=== PATIENT | female | born 1935 | race Caucasian/White ===

== ENCOUNTER 2018-02-21 12:28 | Observation (INO) | payer MEDICARE ==
[~2018-02-21] VITALS: Ht 149.9 cm; Wt 50.9 kg
[2018-02-21] VITALS (9 sets, daily range): BP systolic 136–158; BP diastolic 65–85; PULSE 67–103; RESP 16–20; TEMP 96.4–98.5; O2SAT 95–98
[~2018-02-21 12:28] MED LIST: MAXZ25 PO; OCUVTAB4 PO
[2018-02-21] MEDS ORDERED: ASPI-516 CHEW (13:08)
[2018-02-21] MEDS ORDERED: OCUVTAB4 PO (13:08)
--- NOTE | 2018-02-21 13:10 | PD ---
HPI Chief Complaint: palpitations Time Seen by Provider: 12:49 Travel History International Travel<30 days: No Contact w/Intl Traveler<30days: No Traveled to known affect area: No History of Present Illness HPI 82yo F presents to the ED with c/o palpitations today. Said she felt lightheaded and then laid down and had palpitations for about 15 minutes. Had some sob at the time. Said there was some discomfort in her chest when she had the palpitations. Denies any sob now. Denies any fever, n/v, abdominal pain, focal weakness or numbness. Pt's contract engineer is Dr. Schultz but he recently retired so she is going to find a new contract engineer. Said she has had palpitations before but did not last this long. Currently symptom free. PFSH Past Medical History Hx Anticoagulant Therapy: No Blood Disorders: No Anxiety: Yes Depression: No Cancer: No Cardiac Catheterization: Yes Cardiovascular Problems: No High Cholesterol: Yes Chemotherapy: No Cerebrovascular Accident: No Diabetes: No Diminished Hearing: No Endocrine: No Gastrointestinal Disorders: No Genitourinary: No Hypertension: Yes Immune Disorder: No Musculoskeletal: No Neurologic: No Psychiatric: No Reproductive: No Respiratory: No Immunizations Current: Yes : 2 Para: 2 Past Surgical History AICD: No Arteriovenous Shunt: No Eye Surgery: Yes (CATARACTS AND IMPLANTS) Hysterectomy: No Insulin Pump: No Joint Replacement: No Pacemaker: No Other Surgery: No Social History Alcohol Use: No Tobacco Use: Yes (/ PPD) Substance Use: No Allergies-Medications (Allergen,Severity, Reaction): Coded Allergies: amlodipine (Unverified Allergy, Severe, Nausea/Vomiting, 02/21/18) atorvastatin (Unverified Allergy, Severe, Nausea/Vomiting, 02/21/18) pravastatin (Unverified Allergy, Severe, Nausea/Vomiting, 02/21/18) simvastatin (Unverified Allergy, Severe, Nausea/Vomiting, 02/21/18) Reported Meds & Prescriptions Reported Meds & Active Scripts Active Reported Preservision Areds (Multiple Vitamins W/ Minerals) 1 Tab 1 Tab PO DAILY Aspirin 81 Mg Chew 81 Mg CHEW DAILY Review of Systems Except as stated in HPI: all other systems reviewed are Neg Physical Exam Narrative GENERAL: 82yo F not in distress. SKIN: Focused skin assessment warm/dry. HEAD: Atraumatic. Normocephalic. EYES: Pupils equal and round. No scleral icterus. No injection or drainage. ENT: No nasal bleeding or discharge. Mucous membranes pink and moist. NECK: Trachea midline. No JVD. CARDIOVASCULAR: Regular rate and rhythm. No murmur appreciated. RESPIRATORY: No accessory muscle use. Clear to auscultation. Breath sounds equal bilaterally. GASTROINTESTINAL: Abdomen soft, non-tender, nondistended. MUSCULOSKELETAL: No obvious deformities. No clubbing. No cyanosis. No edema. NEUROLOGICAL: Awake and alert. No obvious cranial nerve deficits. Motor grossly within normal limits. Normal speech. PSYCHIATRIC: Appropriate mood and affect; insight and judgment normal. Data Data Last Documented VS Vital Signs Date Time Temp Pulse Resp B/P (MAP) Pulse Ox O2 Delivery O2 Flow Rate FiO2 02/21/18 13:56 90 16 136/67 (90) 96 Room Air 02/21/18 12:35 98.0 Orders Orders Complete Blood Count With Diff (02/21/18 12:59) Basic Metabolic Panel (Bmp) (02/21/18 12:59) Troponin I (02/21/18 12:59) Magnesium (Mg) (02/21/18 12:59) Thyroid Stimulating Hormone (02/21/18 12:59) Chest, Single Ap (02/21/18 ) Prothrombin Time / Inr (Pt) (02/21/18 13:56) Act Partial Throm Time (Ptt) (02/21/18 13:56) Aspirin (Aspirin) (02/21/18 14:45) Admit Order (Ed Use Only) (02/21/18 14:41) Activity Bed Rest With Brp (02/21/18 14:41) Vital Signs (Adult) Q4H (02/21/18 14:41) Cardiac Rhythm .As Directed (02/21/18 14:41) Notify Dr: Other .PRN (02/21/18 14:41) Notify . Parameters (02/21/18 14:41) Resp Oxygen Nasal Cannula (02/21/18 ) Diet Heart Healthy (02/21/18 Dinner) Ckmb (Isoenzyme) Profile (02/21/18 16:15) Ckmb (Isoenzyme) Profile (02/21/18 19:15) Troponin I (02/21/18 16:15) Troponin I (02/21/18 19:15) Electrocardiogram (02/21/18 16:15) Electrocardiogram (02/21/18 19:15) ^ Obtain (02/21/18 14:41) Sodium Chloride 0.9% Flush (Ns Flush) (02/21/18 14:45) Sodium Chloride 0.9% Flush (Ns Flush) (02/21/18 21:00) Acetaminophen (Tylenol) (02/21/18 14:45) Apartment Groundskeeper / Telemetry CELIA.Q8H (02/21/18 14:41) Scd Bilateral/Knee High CELIA.BID (02/21/18 14:41) Labs Laboratory Tests Test 02/21/18 13:25 02/21/18 14:14 White Blood Count 7.9 TH/MM3 Red Blood Count 4.19 MIL/MM3 Hemoglobin 12.3 GM/DL Hematocrit 37.6 % Mean Corpuscular Volume 89.7 FL Mean Corpuscular Hemoglobin 29.5 PG Mean Corpuscular Hemoglobin Concent 32.8 % Red Cell Distribution Width 14.6 % Platelet Count 236 TH/MM3 Mean Platelet Volume 9.1 FL Neutrophils (%) (Auto) 71.5 % Lymphocytes (%) (Auto) 17.4 % Monocytes (%) (Auto) 9.1 % Eosinophils (%) (Auto) 1.0 % Basophils (%) (Auto) 1.0 % Neutrophils # (Auto) 5.6 TH/MM3 Lymphocytes # (Auto) 1.4 TH/MM3 Monocytes # (Auto) 0.7 TH/MM3 Eosinophils # (Auto) 0.1 TH/MM3 Basophils # (Auto) 0.1 TH/MM3 CBC Comment DIFF FINAL Differential Comment Blood Urea Nitrogen 19 MG/DL Creatinine 0.77 MG/DL Random Glucose 86 MG/DL Calcium Level 9.2 MG/DL Magnesium Level 1.9 MG/DL Sodium Level 138 MEQ/L Potassium Level 3.8 MEQ/L Chloride Level 105 MEQ/L Carbon Dioxide Level 24.3 MEQ/L Anion Gap 9 MEQ/L Estimat Glomerular Filtration Rate 72 ML/MIN Troponin I 0.09 NG/ML Thyroid Stimulating Hormone 3rd Gen 1.330 uIU/ML Prothrombin Time 10.8 SEC Prothromb Time International Ratio 1.1 RATIO Activated Partial Thromboplast Time 23.5 SEC MDM Medical Decision Making Medical Screen Exam Complete: Yes Emergency Medical Condition: Yes Interpretation(s) EKG: NSR 95bpm. Normal axis. No ST segment elevation or depression. Differential Diagnosis ACS vs. paroxysmal afib vs. arrhythmias Narrative Course 82yo F with palpitations, sob and mild chest discomfort during the palpations here for evaluation. Pt is currently asymptomatic. Labs reviewed, no leukocytosis. H/H normal. BUN mildly elevated, pt has no nausea and can orally hydrate. TSH normal. Troponin is mildly elevated at 0.09. CXR negative. Since pt has elevated troponin and discomfort in chest before, will observe and trend EKG and cardiac enzyme. Discussed with Dr. Cedeno and accepted to her service. Diagnosis Primary Impression: Elevated troponin Admitting Information Admitting Physician Requests: Observation Gina Bonilla DO Feb 21, 2018 13:10
[2018-02-21 13:35] LABS: AUTOMATED NEUTROPHIL # 5.6 TH/MM3 (1.8-7.7); BASOPHIL # 0.1 TH/MM3 (0-0.2); EOSINOPHIL # 0.1 TH/MM3 (0-0.4); HEMATOCRIT 37.6 % (35.0-46.0); HEMOGLOBIN 12.3 GM/DL (11.6-15.3); LYMPH % 17.4 % (9.0-44.0); LYMPHOCYTE # 1.4 TH/MM3 (1.0-4.8); MEAN CELL VOLUME 89.7 FL (80.0-100.0); MEAN CORPUSCULAR HEMOGLOBIN 29.5 PG (27.0-34.0); MEAN CORPUSCULAR HGB CONC 32.8 % (32.0-36.0); MEAN PLATELET VOLUME 9.1 FL (7.0-11.0); MONO % 9.1 % (0.0-8.0); MONOCYTE # 0.7 TH/MM3 (0-0.9); NEUT % 71.5 % (16.0-70.0); PLATELET COUNT 236 TH/MM3 (150-450); RED BLOOD COUNT 4.19 MIL/MM3 (4.00-5.30); RED CELL DISTRIBUTION WIDTH 14.6 % (11.6-17.2); WHITE BLOOD COUNT 7.9 TH/MM3 (4.0-11.0)
[2018-02-21 13:43] LABS: BICARBONATE 24.3 MEQ/L (21.0-32.0); CALCIUM 9.2 MG/DL (8.5-10.1); MAGNESIUM 1.9 MG/DL (1.5-2.5)
[2018-02-21 13:47] LABS: CREATININE 0.77 MG/DL (0.50-1.00)
[2018-02-21 13:52] LABS: TROPONIN I 0.09 NG/ML (0.02-0.05)
--- NOTE | 2018-02-21 14:18 | RADRPT ---
EXAM DATE: 02/21/2018 2:08 PM EDT AGE/SEX: 82 years / Female INDICATIONS: Short of breath and heart palpitations CLINICAL DATA: This is the patient's initial encounter. Patient reports that signs and symptoms have been present for 1 day and indicates a pain score of 3/10. MEDICAL/SURGICAL HISTORY: None. None. COMPARISON: No prior exams available for comparison. FINDINGS: The heart is normal in size. There are diffuse chronic interstitial changes and COPD. The bony struct ures demonstrate mild degenerative changes but are otherwise intact. CONCLUSION: COPD changes. No acute abnormality. Electronically signed by: Jose Quezada MD 02/21/2018 2:17 PM EDT
[2018-02-21 14:36] LABS: INTERNATIONAL NORMALIZED RATIO 1.1 RATIO; PROTHROMBIN TIME - PATIENT 10.8 SEC (9.8-11.6)
[2018-02-21] MEDS ORDERED: IOHEXOL 350 MG/ML 100 ML BTL (for Cath Lab) OTHER ONE (14:43)
[2018-02-21] MEDS ORDERED: ASPIRIN 325 MG TAB PO ONE (14:45)
[2018-02-21] MEDS ORDERED: SODIUM CHLORIDE 0.9% FLUSH 10 ML FLUSH IV FLUSH PRN (14:45)
[2018-02-21] MEDS ORDERED: ACETAMINOPHEN 500 MG CPLT PO PRN (14:45)
--- NOTE | 2018-02-21 16:13 | HHI.HP ---
[facility] Physician Ulysses Mckeon MD Admission Diagnosis Elevated troponin, palpitations Diagnoses: (1) Elevated troponin Chief Complaint: Palpitations Travel History International Travel<30 Days: No Contact w/Intl Traveler <30 Da: No Traveled to Known Affected Are: No History of Present Illness This is a pleasant 82-year-old female patient with a known medical history of hyperlipidemia, hypertension and history of vasovagal syncope who presented to the ED with complaints of palpitations. Supposedly around 1130 this morning she felt lightheaded, went to lay down and also complained of palpitations for approximately 15 minutes. She does admit to associated shortness of breath and felt like she was gasping for air. She called her daughter as well as 911. Patient does admit to vomiting 1 at home. She feels like something was pounding in her chest this morning, denies any actual chest pain. Denies any associated lightheadedness or dizziness. Patient states upon arrival to the ED all of her symptoms subsided. She denies any recent illness including fever, chills, cough, shortness of breath, headache, abdominal pain, nausea, diarrhea or dysuria. Does admit to a history of vasovagal syncope, states that she has been seeing a neurologist, Dr. Mott, as well as Dr. Schultz, cardiology for management of this disease. She last saw her roll forger one year ago. She does admit to history of palpitations in the past. Does state she underwent a cardiac catheterization back in 2006 and since then has not underwent a cardiac stress test. She states roughly 2 years ago she was hospitalized at [facility], and workup was done for her syncope including MRI, echocardiogram. 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 It should also be noted that she reports some carotid blockage but unaware of extent. Review of Systems Constitutional: COMPLAINS OF: Diaphoretic episodes, DENIES: Fatigue, Fever, Chills Eyes: DENIES: Diplopia Respiratory: COMPLAINS OF: Shortness of breath, DENIES: Cough, Wheezing, Sputum production Cardiovascular: COMPLAINS OF: Palpitations, DENIES: Chest pain, Lower Extremity Edema Gastrointestinal: COMPLAINS OF: Vomiting, DENIES: Abdominal pain, Black stools , Bloody stools, Constipation, Diarrhea, Nausea Musculoskeletal: DENIES: Joint pain Hematologic/lymphatic: DENIES: Bruising Neurologic: DENIES: Abnormal gait Psychiatric: COMPLAINS OF: Anxiety Except as stated in HPI: all other systems reviewed are Neg Past Family Social History Past Medical History History of vasovagal syncope Hyperlipidemia Anxiety Hypertension Macular degeneration History of reoccurring bladder cancer Past Surgical History Bilateral cataracts and lens implant in 2007 History of bladder cancer with history of 4 surgeries Right carpal tunnel repair Reported Medications Active Reported Preservision Areds (Multiple Vitamins W/ Minerals) 1 Tab 1 Tab PO DAILY Aspirin 81 Mg Chew 81 Mg CHEW DAILY Allergies: Coded Allergies: amlodipine (Unverified Allergy, Severe, Nausea/Vomiting, 02/21/18) atorvastatin (Unverified Allergy, Severe, Nausea/Vomiting, 02/21/18) pravastatin (Unverified Allergy, Severe, Nausea/Vomiting, 02/21/18) simvastatin (Unverified Allergy, Severe, Nausea/Vomiting, 02/21/18) Active Ordered Medications Current Medications Medications (Trade) Dose Ordered Sig/Melissa Route Start Time Stop Time Status Last Admin (NS Flush) 2 ml UNSCH PRN IV FLUSH 02/21/18 14:45 (NS Flush) 2 ml BID IV FLUSH 02/21/18 21:00 (Tylenol) 500 mg Q4H PRN PO 02/21/18 14:45 (Aspirin Chew) 81 mg DAILY CHEW 02/22/18 09:00 (Ocuvite) 1 tab DAILY PO 02/22/18 09:00 Family History Maternal medical history significant for hypertension and angina. Father had asthma. Social History Denies any current tobacco abuse. She states she quit 8 months ago prior to this she did smoke 1 pack per day for 65 years. Denies any alcohol or illicit drug use. Physical Exam Vital Signs Vital Signs Date Time Temp Pulse Resp B/P (MAP) Pulse Ox O2 Delivery O2 Flow Rate FiO2 02/21/18 15:44 02/21/18 13:56 90 16 136/67 (90) 96 Room Air 02/21/18 13:08 88 96 Room Air 02/21/18 12:35 98.0 103 16 136/85 (102) 98 Physical Exam GENERAL: Well-developed, well-nourished patient in NAD. SKIN: Warm and dry. No rash. HEAD: Normocephalic. Atraumatic. EYES: Pupils equal and round. No scleral icterus. No injection or drainage. ENT: No nasal bleeding or discharge. Mucous membranes pink and moist. NECK: Supple. Trachea midline. CARDIOVASCULAR: Regular rate and rhythm. S1, S2 noted. No murmur appreciated. No chest pain to palpation. RESPIRATORY: No accessory muscle use. Clear to auscultation. Breath sounds equal bilaterally. GASTROINTESTINAL: Abdomen soft, non-tender, nondistended. Normoactive bowel sounds x4. MUSCULOSKELETAL: No obvious deformities. Extremities without clubbing, cyanosis , or edema. NEUROLOGICAL: Awake and alert. No obvious cranial nerve deficits. Motor grossly within normal limits. 5/5 muscle strength in bilateral upper and lower extremities. Normal speech. PSYCHIATRIC: Appropriate mood and affect; insight and judgment normal. Laboratory Laboratory Tests Test 02/21/18 13:25 02/21/18 14:14 White Blood Count 7.9 Red Blood Count 4.19 Hemoglobin 12.3 Hematocrit 37.6 Mean Corpuscular Volume 89.7 Mean Corpuscular Hemoglobin 29.5 Mean Corpuscular Hemoglobin Concent 32.8 Red Cell Distribution Width 14.6 Platelet Count 236 Mean Platelet Volume 9.1 Neutrophils (%) (Auto) 71.5 Lymphocytes (%) (Auto) 17.4 Monocytes (%) (Auto) 9.1 Eosinophils (%) (Auto) 1.0 Basophils (%) (Auto) 1.0 Neutrophils # (Auto) 5.6 Lymphocytes # (Auto) 1.4 Monocytes # (Auto) 0.7 Eosinophils # (Auto) 0.1 Basophils # (Auto) 0.1 CBC Comment DIFF FINAL Differential Comment Blood Urea Nitrogen 19 Creatinine 0.77 Random Glucose 86 Calcium Level 9.2 Magnesium Level 1.9 Sodium Level 138 Potassium Level 3.8 Chloride Level 105 Carbon Dioxide Level 24.3 Anion Gap 9 Estimat Glomerular Filtration Rate 72 Troponin I 0.09 Thyroid Stimulating Hormone 3rd Gen 1.330 Prothrombin Time 10.8 Prothromb Time International Ratio 1.1 Activated Partial Thromboplast Time 23.5 Result Diagram: 02/21/18 1325 02/21/18 1325 Imaging Last Impressions Chest X-Ray 02/21/18 0000 Signed Impressions: CONCLUSION: COPD changes. No acute abnormality. Septic Shock Reassessment Septic shock perfusion: reassessment completed Caprini VTE Risk Assessment Caprini VTE Risk Assessment: Mod/High Risk (score >= 2) Caprini Risk Assessment Model Point Value = 1 Point Value = 2 Point Value = 3 Point Value = 5 Age 41-60 Minor surgery BMI > 25 kg/m2 Swollen legs Varicose veins or History of unexplained or recurrent spontaneous Oral contraceptives or hormone replacement Sepsis (< 1 month) Serious lung disease, including pneumonia (< 1 month) Abnormal pulmonary function Acute myocardial infarction Congestive heart failure (< 1 month) History of inflammatory bowel disease Medical patient at bed rest Age 61-74 Arthroscopic surgery Major open surgery (> 45 min) Laparoscopic surgery (> 45 min) Malignancy Confined to bed (> 72 hours) Immobilizing plaster cast Central venous access Age >= 75 History of VTE Family history of VTE Factor V Leiden Prothrombin [id number] Lupus anticoagulant Anticardiolipin antibodies Elevated serum homocysteine Heparin-induced thrombocytopenia Other congenital or acquired thrombophilia Stroke (< 1 month) Elective arthroplasty Hip, pelvis, or leg fracture Acute spinal cord injury (< 1 month) Prophylaxis Regimen Total Risk Factor Score Risk Level Prophylaxis Regimen 0-1 Low Early ambulation 2 Moderate Order ONE of the following: *Sequential Compression Device (SCD) *Heparin 5000 units SQ BID 3-4 Higher Order ONE of the following medications: *Heparin 5000 units SQ TID *Enoxaparin/Lovenox 40 mg SQ daily (WT < 150 kg, CrCl > 30 mL/min) *Enoxaparin/Lovenox 30 mg SQ daily (WT < 150 kg, CrCl > 10-29 mL/min) *Enoxaparin/Lovenox 30 mg SQ BID (WT < 150 kg, CrCl > 30 mL/min) AND/OR *Sequential Compression Device (SCD) 5 or more Highest Order ONE of the following medications: *Heparin 5000 units SQ TID (Preferred with Epidurals) *Enoxaparin/Lovenox 40 mg SQ daily (WT < 150 kg, CrCl > 30 mL/min) *Enoxaparin/Lovenox 30 mg SQ daily (WT < 150 kg, CrCl > 10-29 mL/min) *Enoxaparin/Lovenox 30 mg SQ BID (WT < 150 kg, CrCl > 30 mL/min) AND *Sequential Compression Device (SCD) Assessment and Plan Problem List: (1) Elevated troponin ICD Code: R74.8 - Abnormal levels of other serum enzymes Status: Acute Assessment and Plan This is a pleasant 82-year-old female patient with a known medical history of hyperlipidemia, hypertension and history of vasovagal syncope who presented to the ED with complaints of palpitations. Supposedly around 1130 this morning she felt lightheaded, went to lay down and also complained of palpitations for approximately 15 minutes. Elevated troponin rule out ACS - Initial troponin 0.09. Awaiting trend. Continue to follow. - EKG reviewed showing sinus rhythm with controlled heart rate, no ST changes to indicate ischemia. - All symptoms have resolved at this time. - Chest x-ray reviewed showing no acute abnormality. COPD changes seen. - Will continue on cardiac telemetry, monitor for any arrhythmias. - Patient was given aspirin in ED. Will continue. - Spoke to roll forger on-call, consulted, input and recommendations pending. - Will keep n.p.o. after midnight in anticipation for stress test versus need for cardiac catheterization. - Further hospitalization and treatment plan will depend on troponin trend and clinical improvement. - Patient stable at this time and agreeable to plan. Hypertension: This is diet controlled. Patient does not take anything at home. Will continue to monitor trends. DVT prophylaxis: SCDs. Jennifer Reza Feb 21, 2018 16:13
[2018-02-21 17:32] LABS: TROPONIN I 0.37 NG/ML (0.02-0.05)
[2018-02-21 18:16] LABS: HEMATOCRIT 37.5 % (35.0-46.0); HEMOGLOBIN 12.4 GM/DL (11.6-15.3); MEAN CELL VOLUME 89.2 FL (80.0-100.0); MEAN CORPUSCULAR HEMOGLOBIN 29.6 PG (27.0-34.0); MEAN CORPUSCULAR HGB CONC 33.2 % (32.0-36.0); MEAN PLATELET VOLUME 9.2 FL (7.0-11.0); PLATELET COUNT 259 TH/MM3 (150-450); RED BLOOD COUNT 4.21 MIL/MM3 (4.00-5.30); RED CELL DISTRIBUTION WIDTH 14.5 % (11.6-17.2); WHITE BLOOD COUNT 10.3 TH/MM3 (4.0-11.0)
[2018-02-21 18:30] LABS: INTERNATIONAL NORMALIZED RATIO 1.1 RATIO; PROTHROMBIN TIME - PATIENT 10.7 SEC (9.8-11.6)
[2018-02-21] MEDS ORDERED: HEPARIN-D5W 25,000 U/250 ML 250 ML IV SCH (19:00)
[2018-02-21 20:17] LABS: TROPONIN I 0.27 NG/ML (0.02-0.05)
[2018-02-21] MEDS: SODIUM CHLORIDE 0.9% FLUSH 10 ML FLUSH IV FLUSH SCH (21:00)
[2018-02-22] VITALS (21 sets, daily range): BP systolic 131–156; BP diastolic 67–75; PULSE 60–87; RESP 16–20; TEMP 97.8–98.5; O2SAT 90–98
[2018-02-22] MEDS: NITROGLYCERIN 2% OINT 1 GM PACKET TOPICAL SCH ×3 (06:30→17:22)
[2018-02-22] MEDS: MULTIVITAMIN-OPHTHALMIC 1 TAB PO SCH (07:25)
[2018-02-22] MEDS: METOPROLOL TARTRATE 25 MG TAB PO SCH ×3 (07:25→21:54)
[2018-02-22] MEDS: ASPIRIN 81 MG CHEW TAB CHEW SCH (07:25)
[2018-02-22] MEDS: SODIUM CHLORIDE 0.9% FLUSH 10 ML FLUSH IV FLUSH SCH ×2 (08:11→21:55)
[2018-02-22 09:58] LABS: AST (GOT) 19 U/L (15-37); BICARBONATE 24.8 MEQ/L (21.0-32.0); BLOOD UREA NITROGEN 20 MG/DL (7-18); CALCIUM 9.2 MG/DL (8.5-10.1); CHLORIDE 106 MEQ/L (98-107); CREATININE 0.82 MG/DL (0.50-1.00); GLOMERULAR FILTRATION RATE 67 ML/MIN (>89); GLUCOSE,RANDOM 86 MG/DL (74-106); SODIUM (NA) 140 MEQ/L (136-145)
[2018-02-22 09:59] LABS: ALBUMIN 3.6 GM/DL (3.4-5.0); ALT (GPT) 16 U/L (10-53); CHOLESTEROL 241 MG/DL (120-200)
[2018-02-22 10:02] LABS: ALKALINE PHOSPHATASE 88 U/L (45-117); HDL CHOLESTEROL 63.4 MG/DL (40.0-60.0); LDL CHOLESTEROL 161 MG/DL (0-99); TOTAL BILIRUBIN ADULT 0.4 MG/DL (0.2-1.0); TOTAL PROTEIN 7.6 GM/DL (6.4-8.2); TRIGLYCERIDES 82 MG/DL (42-150)
[2018-02-22] MEDS ORDERED: MIDAZOLAM HCL 2 MG/2 ML VIAL ONE (10:14)
[2018-02-22] MEDS ORDERED: HEPARIN-NS/PF INJ 1,000 ML ONE (10:14)
--- NOTE | 2018-02-22 10:24 | MB ---
cc: Miguel Ramirez MD DATE: 02/22/2018 REASON FOR CONSULTATION: Evaluation of chest discomfort and elevated troponin. HISTORY OF PRESENT ILLNESS: Pallavi Lema is an 82-year-old woman with known coronary artery disease. She had a previous cardiac catheterization performed on 02/11/2007 showing a 60% mid right coronary artery stenosis. The vessel was very small, so medical therapy was advised. She does not followup with her gas plant repairer regularly. She has had hypertension in the past been on no medicines for now. She has hyperlipidemia, but has had a complete intolerance to statins she said due to nausea, vomiting, and near syncope. She refuses to try taking them again. She was at home and she had an episode where she felt palpitations. She was short of breath and had a discomfort in her chest that she has a hard time describing. She says she has a history of vasovagal syncope. It has been awhile since she has seen a gas plant repairer. Subsequently ruled in for an DE with a small troponin bump. She has had previous evaluations for syncope at [facility], but none of those results are available. Apparently had a very small brain aneurysm and some mild carotid disease. PAST MEDICAL HISTORY: Includes vasovagal syncope, coronary artery disease, hyperlipidemia, anxiety, hypertension, macular degeneration, bladder cancer with multiple cystoscopies performed, no hematuria, however. PAST SURGICAL HISTORY: Includes, bilateral cataract surgery with lens implants, multiple cystoscopies for bladder cancer, right carpal tunnel repair. MEDICATIONS: The only medication she was taking prior to admission was vitamins and one aspirin. ALLERGIES: INCLUDE AMLODIPINE, ATORVASTATIN, PRAVASTATIN, SIMVASTATIN, AND SHE IS INTOLERANT TO MORPHINE WELL. FAMILY HISTORY: Positive for hypertension and angina. Father has asthma. SOCIAL HISTORY: She has a lifelong history of smoking. She has quit intermittently, but smoked right up until 8 months ago. REVIEW OF SYSTEMS: No bleeding. Remaining review of systems is also negative. PHYSICAL EXAMINATION: GENERAL: This is a short, thin elderly female in no acute distress. VITAL SIGNS: Charted. She has been normotensive. HEENT: Atraumatic, normocephalic. No xanthelasma. NECK: Shows no JVD. No bruits. Carotid upstrokes are okay. CHEST: Shows diminished breath sounds throughout, but no wheezes or rales. CARDIAC: S1, S2, regular rate and rhythm. No murmurs, rubs or gallops. ABDOMEN: Soft, nontender. No masses or organomegaly. EXTREMITIES: Reveal good radial pulses, but her wrists are somewhat thin. Femoral pulses are intact. Pedal pulses seem mildly diminished. LABORATORY WORKUP: Workup so far, CBC is unremarkable. Creatinine is normal. Her troponin went from 0.09-0.37 and then down to 0.27. Cholesterol is 241. Fractionation is pending. Her chest x-ray showed COPD. IMPRESSION: This is an 82-year-old woman with a lifelong history of smoking, known coronary artery disease with 60% disease of her right coronary artery 11 years ago now coming in with an acute non-ST segment elevation myocardial infarction. There is no specific EKG changes, but her troponin is clearly abnormal. PLAN: Perform diagnostic catheterization with possible intervention. Informed consent has been obtained including discussing the risks of , heart attack, stroke, etc. Further therapy to be determined. In the meantime, the patient is on aspirin, beta joann, nitrate therapy and heparin. Would like to introduce statin, but she refuses. Miguel Ramirez MD VEW/DL , 10:04 AM , 10:22 AM
--- NOTE | 2018-02-22 11:13 | CATHPROC ---
Studio HIS Report Study Information Study Number Admission Scheduled Start Study Start [id number] Feb 21 2018 2:42PM 02/22/2018 Feb 22 2018 8:20AM [place] [facility] Cardiac Catheterization Admit Source Facility Department Emergency department [facility] - [facility] [employer] Physician and Clinical Staff Initial Miguel Dobson Senior Accounts Payable Specialist Don Campbell,FADI Recorder Yane Cruz BSN Scrub Leonie VallejoRT(R) Procedures Performed Procedure Location (Site) Vessel Name Angiogram LV LV Ventricle Coronary Angiograms LCA Left Coronary Coronary Angiograms RCA Right Coronary L Heart Cath LV Gram-hand inj. LV Abd Aorta (A3) Aorta Equipment Time Distillery Worker General Description Size Mfg Part Number Used/Scraped TRANSDUCER, TRAllegiance Health FoundationAVE [id number] 10:10 MARTE JONES * Used W/STOCKCOCK *[id number] 10:58 Dayjet MEDICAL VASCADE, FR6 CLOSURE SYSTEM FR 6\\7 Used *[id number] *[id number] [id number] *[id number] PIGTAIL ANG. 145 INFINITI 534-652S CATHETER *[id number] [id number] *[id number] 10:10 Turing Data BLANKET,WARM AIR CCL * Used *[id number] 10:10 Turing Data PACK, CCL CUSTOM * Used *[id number] 10:10 Vital Sensors PACER PEN, SKIN DUAL W/ RULER * Used *[id number] 10:10 Human Demand SHEATH, FR6.5 PRELUDE 11CM FR 6.5 038ACT Used *[id number] 10:10 Human Demand WIRE, 3MMJ .035 180CM 180CM Used *[id number] 10:10 NAMIC MANIFOLD, 4 PORT * Used *[id number] TUBING, PRESSURE INJECTION [id number] 10:39 NAMIC 72" Used 72" *[id number] 10:10 NYCOMED OMNIPAQUE, 350 MG, 150ML 150ML [id number] Used History: Current Medications Medication Dosage/Unit Route Frequency Last Date/Time Taken Beta Earl 12.5 mg 02/22/2018 ASA 81 mg 02/22/2018 History: Allergies Allergy Reaction pravastatin Nausea/Vomiting simvastatin Nausea/Vomiting amlodipine Nausea/Vomiting atorvastatin Nausea/Vomiting History: Risk Factors Hypertension Dyslipidemia Yes Yes History: Stress Tests Stress or Imaging Studies Performed No History: Other Current Smoker Method Quit Packs a Day Years Used Pack Years No Cigarettes 1 Years Ago 1 67 67 Labs Hgb (g/dl) Hct (%) WBC (l/cumm) Platelets (thousands) 11.60-17.00 35.00-51.00 4.00-11.00 150.00-450.00 12.4 37.5 10.3 259 Glucose (mg/dl) BUN (mg/dl) Creatinine (mg/dl) BUN:Creatinine (1:x) 74.00-106.00 7.00-18.00 0.50-1.30 10.00-20.00 86 19 0.7 27.1 Na (meq/l) K (meq/l) 136.00-145.00 3.50-5.10 138 3.8 INR (PTT:PT) 0.90-1.10 1.1 Troponin I (ng/ml) CPK (u/l) CPK-MB (ng/ML) 0.02-0.05 26.00-308.00 0.50-3.60 0.27 45 Not Drawn Medication Medication Total Dose (Bolus/Oral) Medication Total Dosage/Unit 1% XYLOCAINE 20 mL VERSED 1 mg Medications (Bolus/Oral) Medication Time Given Dosage/Unit Administered By Reason VERSED 02/22/2018 10:34:04 AM 1 mg Don Campbell 1 mg VERSED given in lab by Don Campbell, RN via Peripheral IV. Ordered by Miguel Ramirez. 1% XYLOCAINE 02/22/2018 10:34:36 AM 20 mL Miguel Ramirez 20 mL 1% XYLOCAINE given in lab by Miguel Ramirez in Right Groin via Subcutaneous. Ordered by Miguel Ramirez. Medication (Drip) Medication Time Given Dosage/Unit Concentration/Unit Diluent (ml) Solutio n IV Solutions 02/22/2018 10:09:42 AM 50 mL (IV) NaCl .9 IV Solutions given in lab by Don Campbell, RN via Peripheral IV. Pump/Drip Flow using NaCl .9. Orde red by Miguel Ramirez. at [facility] Initial Case Assessment Cardiovascular HR Rhythm NIBP Chest Pain 70 sr 173/75 0 Edema Present Skin color Skin None Normal Warm Dry Circulatory - Right Pulses Posterior Tibial Femoral 2 2 Scale (0,1,2,3,4,d) Circulatory - Left Pulses Posterior Tibial Femoral 1 Scale (0,1,2,3,4,d) Circulatory - Lower Extremities Color Lower Right Color Lower Left Normal Normal Neurological State Oriented to time-place- Alert Moves all extremities person Respiration - General Respiration Rate SpO2 (%) O2 (lpm) (B/min) 13 98 0 Final Case Assessment Cardiovascular HR Rhythm Chest Pain 59 sr 0 Edema Present Skin color Skin None Normal Warm Dry Circulatory - Right Pulses Posterior Tibial Femoral 2 2 Scale (0,1,2,3,4,d) Circulatory - Left Pulses Posterior Tibial Femoral 1 Scale (0,1,2,3,4,d) Circulatory - Lower Extremities Color Lower Right Color Lower Left Normal Normal Neurological State Oriented to time-place- Alert Moves all extremities person Respiration - General Respiration Rate SpO2 (%) (B/min) 21 99 Chronological Log Time Study Chronological Log 10:06:56 Patient arrived via Bed. 10:09:00 Patient Name, D.O.B, / Armband Verified By R.N. 10:09:01 Consent signed by the physician and the patient and verified by the [facility] [employer] [facility] staff. 10:09:02 Pre-op and post- op instructions given; patient acknowledges understanding of instructions . 10:09:08 Patient has been NPO for More than 6Hrs. 10:09:09 Skin Breakdown- none per patient 10:09:17 Patient Warmer Placed on the Table. 10:09:19 Jesenia Prominences Protected 10:09:23 History and physical on the chart or being dictated. 10:09:25 A # 20 IV was noted in the Forearm (right). Grade = 0 IV Solutions given in lab by Don Campbell, FADI via Peripheral IV. Pump/Drip Flow using NaCl . 9. Ordered by James, 10:09:42 Miguel. at [facility] Vitals capture started with the following parameters, Patient=Adult, Interval=5 min, Initial P aqhxsvh=881 mmHg, 10:10:21 Deflation Rate=5 mmHg, Cuff placed on Left Arm 10:11:40 HR=66 bpm, BRCI=587/74 mmhg, SpO2=98.0 %, Resp=15 B/min, Pain=0, Jeffry=10, Hart=2 10:16:06 HR=64 bpm, AOJA=919/75 mmhg, SpO2=94.0 %, Resp=19 B/min, Pain=0, Jeffry=10, Hart=2 Assessment: Initial Case, HR=70 BPM, Rhythm=sr, CCQK=573/75 mmhg, Chest Pain=0, Edema=None, Col or=Normal, Skin = Warm, Dry Right Pulses: Post Tib=2, Femoral=2 Left Pulses: Fab Ped=2, Femoral=1 10:16:19 Lower Right Extremities: Color=Normal Lower Left Extremities: Color=Normal Neurological: State=Alert, Ox3, MCKEON Respiration: Resp=13 B/min, SpO2=98 %, O2=0 lpm 10:17:06 Bilateral groins prepped with 2% chlorhexidine, and draped after a 3 minute waiting time. 10:19:14 MD paged 10:21:03 Pressure channel 1 zeroed. 10:21:05 HR=63 bpm, RVVQ=551/80 mmhg, SpO2=97.0 %, Resp=21 B/min, Pain=0, Jeffry=10, Hart=2 10:21:21 Reference ECG taken 10:26:06 HR=63 bpm, BEHT=234/67 mmhg, SpO2=98.0 %, Resp=19 B/min, Pain=0, Jeffry=10, Hart=2 10:29:31 MD arrived. 10:31:07 HR=65 bpm, CMYF=201/66 mmhg, SpO2=97.0 %, Resp=11 B/min, Pain=0, Jeffry=10, Hart=2 Time Out. Correct patient, correct procedure, correct physician, labs, allergies, and equipment verified with cathode ray tube salvage processor 10:33:41 team present. Fire risk assesment completed (see hard stop sheet for coding). Time Out Conc urred by MD and individual staff in procedure. 10:34:04 1 mg VERSED given in lab by Don Campbell RN via Peripheral IV. Ordered by Miguel Ramirez. 10:34:20 Case Start 10:34:36 20 mL 1% XYLOCAINE given in lab by Miguel Ramirez in Right Groin via Subcutaneous. Ordered b Miguel Everett. 10:35:52 Access site was Right Femoral Artery. 10:36:04 HR=63 bpm, BTFC=558/64 mmhg, SpO2=98.0 %, Resp=11 B/min 10:36:10 A SHEATH, FR6.5 PRELUDE 11CM FR 6.5 was advanced into the Fem Art (right) using the Percuta neous technique. A PIGTAIL ANG. 145 INFINITI CATHETER FR 6 was advanced over a wire. OMNIPAQUE, 350 MG, 150ML 15 0ML was 10:37:32 used for injections. Recorded Pressure: LV, HR=63, Condition=Condition 1 10:38:47 (Left Ventricle) LV 152/2/8 10:41:03 The LV was injected at 8 cc/sec for a total of 30. OMNIPAQUE, 350 MG, 150ML 150ML used. 10:41:05 HR=65 bpm, ULNZ=840/64 mmhg, SpO2=97.0 %, Resp=9 B/min Recorded Pressure: LV, Ao, HR=66, Condition=Condition 1 10:41:44 (Left Ventricle) LV 133/6/13, (Aorta) Ao 131/38/74 After removing the current catheter a JL 4.0 INFINITI CATHETER FR 6 was advanced over a WIRE, 3 MMJ .035 180CM 10:42:29 180CM. Recorded Pressure: Ao, HR=63, Condition=Condition 1 10:43:22 (Aorta) Ao 161/52/93 10:44:10 The LCA was injected and visualized at various angles. OMNIPAQUE, 350 MG, 150ML 150ML used . 10:46:49 HR=66 bpm, JCMO=041/68 mmhg, SpO2=96.0 %, Resp=15 B/min After removing the current catheter a 3DRC INFINITI CATHETER FR 6 was advanced over a WIRE, 3MM J .035 180CM 10:49:30 180CM. 10:51:08 The RCA was injected and visualized at various angles. OMNIPAQUE, 350 MG, 150ML 150ML used . 10:51:09 HR=68 bpm, ZCWR=999/65 mmhg, SpO2=98.0 %, Resp=25 B/min After removing the current catheter a PIGTAIL STR INFINITI CATHETER FR 6 was advanced over a WI RE, 3MMJ .035 10:52:31 180CM 180CM. 10:55:12 The Abd Aorta (A3) was manually injected with 10 cc's and visualized. OMNIPAQUE, 350 MG, 15 0ML 150ML used. 10:55:51 Catheter(s) removed without difficulty 10:56:09 HR=68 bpm, WMOI=925/70 mmhg, SpO2=99.0 %, Resp=14 B/min, Pain=0, Jeffry=10, Hart=2 10:56:10 An injection in the Fem Art (right) was made through the SHEATH, FR6.5 PRELUDE 11CM FR 6.5 . 11:01:12 HR=68 bpm, JLTX=483/65 mmhg, SpO2=99.0 %, Resp=8 B/min, Pain=0, Jeffry=10, Hart=2 11:01:27 VASCADE, FR6 CLOSURE SYSTEM FR 6\\7 placement in the Fem Art (right) 11:01:28 Case End (Physician broke scrub) Assessment: Final Case, HR=59 BPM, Rhythm=sr, Chest Pain=0, Edema=None, Color=Normal, Skin = W arm, Dry Right Pulses: Post Tib=2, Femoral=2 Left Pulses: Fab Ped=2, Femoral=1 11:05:43 Lower Right Extremities: Color=Normal Lower Left Extremities: Color=Normal Neurological: State=Alert, Ox3, MCKEON Respiration: Resp=21 B/min, SpO2=99 % 11:06:15 HR=64 bpm, DGVG=532/37 mmhg, SpO2=99.0 %, Resp=20 B/min, Pain=0, Jeffry=10, Hart=2 11:06:54 No case complications noted. 11:06:55 Cine recording checked. 11:06:57 Bedside Report will be given. 11:07:00 Implantable Device card placed in patient's chart. 11:07:09 CIC called. Spoke to Lidia 11:07:26 A Left Heart Cath was performed. 11:07:33 Sterile dressing applied to site 11:10:23 Patient moved to stretcher 11:10:41 Vitals capture stopped. End Study - Contrast Media Used In Study Contrast Total Opened (mL) Total Used (mL) Total Wasted (mL) Omnipaque 80 80 0 End Study - Maximum Contrast Load Max Contrast Load (mL) 363.6 End Study - Radiation Exposure Fluoro Time (minutes) 4.1 End Study - Patient Disposition Complications Transferred To No Telemetry Bed
[2018-02-22] MEDS ORDERED: MISC INFORMATION XX ONE (11:15)
[2018-02-22] MEDS ORDERED: SODIUM CHLOR 0.9% 1000 ML INJ 1,000 ML IV SCH (11:15)
--- NOTE | 2018-02-22 11:36 | MA ---
cc: Miguel Ramirez MD DATE: 02/22/2018 PROCEDURES PERFORMED Left heart catheterization, left ventriculography, coronary angiography, abdominal aortography, right femoral angiography with VASCADE placement. DESCRIPTION OF PROCEDURE: The patient was brought to the cardiac catheterization lab under urgent conditions. She received 1 mg of Versed for additional sedation. Using 1% lidocaine for local anesthesia, a 6.5-Belizean sheath was easily inserted into the right femoral artery. From that point, cardiac catheterization was performed using a 6-Belizean angled pigtail catheter, a left 4 Ivon and a 3DRC catheter with catheter exchanges throughout. Abdominal aortogram was performed with a hand injection with a straight pigtail catheter. Right femoral angiography was performed via the sheath, followed by uncomplicated VASCADE placement with hemostasis. There were no complications. FINDINGS: 1. Hemodynamics: Left ventricular pressure is 136/6 with an end diastolic pressure of 13. Aortic pressure measured nonsimultaneously was 161/52 with a mean of 93. There was no gradient during pullback from the left ventricle to the aorta. 2. Left ventriculography: Left ventriculography shows a symmetrically claudai left ventricle with an ejection fraction of 70%. 3. Coronary angiography: The left coronary system is heavily calcified. The distal left main has 60-70% stenosis. It bifurcates into the LAD and circumflex vessels. The LAD has mild irregularities only in the 5-10% range proximally. It is bypassable. The circumflex artery is codominant. There is a first obtuse marginal branch, which has 50-60% ostial disease. The obtuse marginal is graftable. The proximal circumflex has about 20% disease. The distal circumflex has about 70% disease before a couple of small posterolateral branches that are too small to bypass. The right coronary artery is extremely small caliber with mid diffuse 60% disease and is too small to revascularize. There is about 40% ostial LAD and ostial circumflex disease suspected in addition to the distal left main. 4. Abdominal aorta: The abdominal aorta is heavily calcified and diffusely irregular. Both internal and external iliacs are patent bilaterally. 5. Right femoral arteriogram. The femoral artery bifurcation is high, just below the femoral head. The external iliac artery is very small, only about 4 mm in diameter. CONCLUSIONS: 1. Normal hemodynamics. 2. Normal left ventricular function. 3. Significant distal left main disease as well as circumflex and right coronary artery disease. 4. Significant peripheral arterial disease would prevent safe use of the Impella or balloon pump. RECOMMENDATIONS: If the patient is agreeable, I recommend bypass surgery to the LAD and circumflex marginal branches. MD BRANDYN Davila/DRAGAN , 11:14 AM , 11:35 AM
--- NOTE | 2018-02-22 15:42 | HHI.PR ---
Subjective Remarks Patient reports she is feeling well. She denies chest pain or shortness of breath. Status post heart catheterization which revealed significant multivessel disease. She indicated to me that she would not want to go through with any surgeries. Objective Vitals Vital Signs Date Time Temp Pulse Resp B/P (MAP) Pulse Ox O2 Delivery O2 Flow Rate FiO2 02/22/18 14:00 69 02/22/18 13:00 69 02/22/18 12:43 97.9 69 16 151/71 (97) 96 02/22/18 12:20 98 02/22/18 12:00 63 02/22/18 11:00 70 02/22/18 10:00 68 02/22/18 09:00 61 02/22/18 08:44 97.9 83 18 131/71 (91) 98 02/22/18 08:00 60 02/22/18 07:00 65 02/22/18 06:00 63 02/22/18 03:29 98.5 63 18 156/69 (98) 96 02/21/18 23:01 70 02/21/18 22:39 67 02/21/18 22:39 98.5 67 18 151/65 (93) 95 02/21/18 21:02 71 02/21/18 20:00 96.4 72 20 155/69 (97) 95 02/21/18 19:50 95 21 02/21/18 17:18 76 02/21/18 16:00 97.0 71 20 158/73 (101) 97 02/21/18 15:44 I/O 02/21/18 02/21/18 02/21/18 02/22/18 02/22/18 02/22/18 07:00 15:00 23:00 07:00 15:00 23:00 Intake Total 120 ml 420 ml Output Total 700 ml Balance 120 ml -280 ml Intake Oral 120 ml 420 ml Output Urine Total 700 ml # Bowel Movements 2 Result Diagram: 02/21/18 1807 02/22/18 0834 Objective Remarks GENERAL: This is a well-nourished, well-developed patient, in no apparent distress. CARDIOVASCULAR: Normal rate and regular rhythm without murmurs, gallops, or rubs. RESPIRATORY: Good respiratory efforts. Breath sounds equal and clear to auscultation bilaterally. GASTROINTESTINAL: Abdomen soft, non-tender, non-distended. Normal active bowel sounds MUSCULOSKELETAL: Extremities without cyanosis, or edema. NEURO: Alert & Oriented x4 to person, place, time, situation. Moves all ext x4 PSYCH: Appropriate mood and affect. A/P Problem List: (1) Elevated troponin ICD Code: R74.8 - Abnormal levels of other serum enzymes Status: Acute (2) NSTEMI (non-ST elevated myocardial infarction) ICD Code: I21.4 - Non-ST elevation (NSTEMI) myocardial infarction (3) CAD (coronary artery disease) ICD Code: I25.10 - Atherosclerotic heart disease of [place] coronary artery without angina pectoris Assessment and Plan 82-year-old female patient with a known medical history of hyperlipidemia, hypertension and history of vasovagal syncope who presented to the ED with complaints of palpitations. Patient found to have NSTEMI. she underwent heart catheterization which revealed if he cannot multivessel disease. Cardiology recommended bypass surgery. CT surgery was consulted. Patient currently reluctant to have any surgical procedures. -Continue aspirin, metoprolol. Patient refused statin per cardiology. Rosa Varghese MD Feb 22, 2018 15:42
--- NOTE | 2018-02-22 16:08 | PD.CAR.PN ---
CVT Progress Note Subjective/Hospital Course: Pt examined and chart reviewed. Full consult dictated. Discussed findings with pt and daughter. They do not wish to proceed with surgical intervention for her underlying CAD. Will standby for now. Thanks!! Objective: Vital Signs Date Time Temp Pulse Resp B/P (MAP) Pulse Ox O2 Delivery O2 Flow Rate FiO2 02/22/18 14:00 69 02/22/18 13:00 69 02/22/18 12:43 97.9 69 16 151/71 (97) 96 02/22/18 12:20 98 02/22/18 12:00 63 02/22/18 11:00 70 02/22/18 10:00 68 02/22/18 09:00 61 02/22/18 08:44 97.9 83 18 131/71 (91) 98 02/22/18 08:00 60 02/22/18 07:00 65 02/22/18 06:00 63 02/22/18 03:29 98.5 63 18 156/69 (98) 96 02/21/18 23:01 70 02/21/18 22:39 67 02/21/18 22:39 98.5 67 18 151/65 (93) 95 02/21/18 21:02 71 02/21/18 20:00 96.4 72 20 155/69 (97) 95 02/21/18 19:50 95 21 02/21/18 17:18 76 Labs: Laboratory Tests Test 02/22/18 08:34 02/22/18 13:06 Blood Urea Nitrogen 20 MG/DL (7-18) Creatinine 0.82 MG/DL (0.50-1.00) Random Glucose 86 MG/DL (74-106) Total Protein 7.6 GM/DL (6.4-8.2) Albumin 3.6 GM/DL (3.4-5.0) Calcium Level 9.2 MG/DL (8.5-10.1) Alkaline Phosphatase 88 U/L (45-117) Aspartate Amino Transf (AST/SGOT) 19 U/L (15-37) Alanine Aminotransferase (ALT/SGPT) 16 U/L (10-53) Total Bilirubin 0.4 MG/DL (0.2-1.0) Sodium Level 140 MEQ/L (136-145) Potassium Level 3.9 MEQ/L (3.5-5.1) Chloride Level 106 MEQ/L (98-107) Carbon Dioxide Level 24.8 MEQ/L (21.0-32.0) Anion Gap 9 MEQ/L (5-15) Estimat Glomerular Filtration Rate 67 ML/MIN (>89) Triglycerides Level 82 MG/DL (42-150) Cholesterol Level 241 MG/DL (120-200) LDL Cholesterol 161 MG/DL (0-99) HDL Cholesterol 63.4 MG/DL (40.0-60.0) Cholesterol/HDL Ratio 3.80 RATIO Activated Partial Thromboplast Time 25.3 SEC (24.3-30.1) Result Diagram: 02/21/18 1807 02/22/18 0834 Valentine Mendoza MD Feb 22, 2018 16:08
--- NOTE | 2018-02-22 16:53 | MB ---
cc: Valentine Mendoza MD DATE: 02/22/2018 REFERRING PHYSICIAN: Migule Ramirez MD REASON FOR CONSULTATION: Coronary artery disease. HISTORY OF PRESENT ILLNESS: Ms. Lema is a very pleasant 82-year-old lady with a known history of coronary artery disease diagnosed initially in 2006 when she was told she had a 60% mid right coronary artery stenosis and a very small vessel. She elected to opt for medical therapy at that time. She now presents with episode of syncope with associated palpitations, shortness of breath and chest discomfort. The patient was seen in the emergency room, evaluated and noted to have a non-ST elevation myocardial infarction and was admitted. Dr. Ramirez was consulted and based on his recommendation, she was taken to the [facility]orer wh[place] today and underwent a coronary angiogram, which revealed a 70% distal left main with associated previously identified right coronary artery disease, which is a very small vessel, in the setting of a preserved ventricular function. I am now being consulted for surgical revascularization therapy. At the present time, she remains pain free, hemodynamically stable with no evidence of ongoing ischemia. PAST MEDICAL HISTORY: Significant for: 1. Vasovagal syncope as described above. 2. Coronary artery disease. 3. Hyperlipidemia. 4. Anxiety. 5. Hypertension. 6. Macular degeneration. 7. Bladder cancer with multiple surgical removal with cystoscopies. 8. Intracranial aneurysm. 9. Carotid occlusive disease. 10. Hyperlipidemia. PAST SURGICAL HISTORY: Remarkable for: 1. Multiple cystoscopies and removal of bladder cancer. 2. Bilateral cataract surgeries. 3. Right carpal tunnel repair. ALLERGIES: THE PATIENT REPORTS ALLERGIES TO AMLODIPINE, ATORVASTATIN, PRAVASTATIN AND SIMVASTATIN. ADMISSION MEDICATIONS: Include vitamins and baby aspirin. SOCIAL HISTORY: She has a lifelong history of smoking, but denies any illicit drug use or extensive alcohol use. FAMILY HISTORY: Noncontributory with father having hypertension and angina as well as asthma. REVIEW OF SYSTEMS: As above, all other parameters are negative. PHYSICAL EXAMINATION: VITAL SIGNS: She is 149 cm tall, weighs 51 kilos, blood pressure is 132/75 with a heart rate of 60, which is regular, respiratory rate is 18 and she is afebrile. HEENT: Normocephalic, atraumatic. Pupils round and reactive. Extraocular muscles intact. No cervical lymphadenopathy, carotid bruits or JVD. CARDIOVASCULAR: Regular rate and rhythm. Normal S1, S2, without gallops, rubs, or murmurs. LUNGS: Clear to auscultation bilaterally with good exchange. ABDOMEN: Soft, nontender, nondistended. Normoactive bowel sounds. No hepatosplenomegaly. EXTREMITIES: Bilateral lower extremity pulses are intact without cyanosis, clubbing or edema. No venous varicosities. NEUROLOGIC: Intact with no focal deficit. IMPRESSION: 1. Acute myocardial infarction (NSTEMI). 2. Multivessel coronary artery disease as described above. 3. Hypertension. 4. Bladder cancer. 5. Hyperlipidemia. 6. Anxiety. 7. Vasovagal syncope. PLAN: The clinical, and angiographic findings, were discussed in detail with the patient and her daughter today. Therapeutic options available including coronary artery bypass grafting was recommended. At this point, the patient and her daughter are not interested in proceeding with surgical intervention. They preferred to have medical management. The potential risk of a fatal myocardial event was discussed with them should revascularization not be undertaken, and they understand that. Their concern is her frailty, advanced age, as well as calcific disease and quality of life following coronary surgery. I certainly understand that point of view and I am happy to return and talk to them in further detail should they change their mind. In the meantime, we will standby for now. Thank you for allowing me to participate in the care of this patient. MD LUPE Rodriguez/KIA , 04:06 PM , 04:51 PM LANG
--- NOTE | 2018-02-22 17:10 | EKG ---
Date Performed: 02/21/2018 Time Performed: 16:40:57 PTAGE: 82 years EKG: Sinus rhythm NORMAL ECG PREVIOUS TRACING : 02/21/2018 12.46 Since the previous tracing, no significant change noted DOCTOR: Rubina Taylor Interpretating Date/Time 02/22/2018 17:07:58
--- NOTE | 2018-02-22 17:10 | EKG ---
Date Performed: 02/21/2018 Time Performed: 12:46:11 PTAGE: 82 years EKG: Sinus rhythm NORMAL ECG PREVIOUS TRACING 02/11/2007 @ 02.00 Since the previous tracing, no significant change noted DOCTOR: Rubina Taylor Interpretating Date/Time 02/22/2018 17:07:46
--- NOTE | 2018-02-22 17:11 | EKG ---
Date Performed: 02/21/2018 Time Performed: 19:36:07 PTAGE: 82 years EKG: Sinus rhythm NORMAL ECG PREVIOUS TRACING : 02/21/2018 16.40 Since the previous tracing, no significant change noted DOCTOR: Rubina Taylor Interpretating Date/Time 02/22/2018 17:08:20
--- NOTE | 2018-02-22 19:59 | ECHRPT ---
Indication: Coronary atherosclerosis CONCLUSIONS Normal left ventricular size and wall thickness. The left ventricular systolic function is normal with an estimated ejection fraction in the range of 60-65%. Left ventricular diastolic function parameters are normal. Trace mitral valve regurgitation. There is mild tricuspid valve regurgitation. The estimated pulmonary arterial pressure is 36 mmHg. BP: / HR: Rhythm: MEASUREMENTS (Male / Female) Normal Values Technical Quality:Good 2D ECHO LV Diastolic Diameter PLAX 3.7 cm 4.2 - 5.9 / 3.9 - 5.3 cm LV Systolic Diameter PLAX 2.6 cm IVS Diastolic Thickness 1.3 cm 0.6 - 1.0 / 0.6 - 0.9 cm LVPW Diastolic Thickness 1.0 cm 0.6 - 1.0 / 0.6 - 0.9 cm LV Relative Wall Thickness 0.6 RV Internal Dim ED PLAX 2.3 cm M-MODE Aortic Root Diameter MM 2.8 cm LA Systolic Diameter MM 3.5 cm LA Ao Ratio MM 1.3 AV Cusp Separation MM 1.3 cm DOPPLER TR Peak Velocity 254.0 cm/s TR Peak Gradient 25.8 mmHg Right Atrial Pressure 10.0 mmHg Pulmonary Artery Systolic Pressu 35.8 mmHg Right Ventricular Systolic Press 35.8 mmHg FINDINGS LEFT VENTRICLE Normal left ventricular size and wall thickness. The left ventricular systolic function is normal wi th an estimated ejection fraction in the range of 60-65%. Left ventricular diastolic function parameters a re normal. RIGHT VENTRICLE Normal right ventricular size and systolic function. LEFT ATRIUM The left atrial size is normal. RIGHT ATRIUM The right atrial size is normal. ATRIAL SEPTUM Normal atrial septal thickness without atrial level shunting by limited color doppler interrogation. AORTA The aortic root and proximal ascending aorta are not well visualized. MITRAL VALVE Trace mitral valve regurgitation. AORTIC VALVE Trileaflet aortic valve. No aortic valve stenosis or regurgitation. TRICUSPID VALVE There is mild tricuspid valve regurgitation. The estimated pulmonary arterial pressure is 35.8 mmHg. PULMONARY VALVE Trivial pulmonary valve regurgitation. VESSELS The inferior vena cava is normal in size. PERICARDIUM No pericardial effusion. Rashid Blandon MD, FACC (Electronically Signed) Final Date:22 February 2018 19:58
[2018-02-23] VITALS (11 sets, daily range): BP systolic 124–146; BP diastolic 56–65; PULSE 60–73; RESP 18; TEMP 97.7–98.5; O2SAT 96–99
[2018-02-23] MEDS: NITROGLYCERIN 2% OINT 1 GM PACKET TOPICAL SCH ×2 (06:00)
[2018-02-23 06:28] LABS: AUTOMATED NEUTROPHIL # 4.7 TH/MM3 (1.8-7.7); BASOPHIL # 0.1 TH/MM3 (0-0.2); BASOPHIL % 0.8 % (0.0-2.0); EOSINOPHIL # 0.2 TH/MM3 (0-0.4); EOSINOPHIL % 2.8 % (0.0-4.0); HEMATOCRIT 33.3 % (35.0-46.0); HEMOGLOBIN 10.9 GM/DL (11.6-15.3); LYMPH % 22.2 % (9.0-44.0); LYMPHOCYTE # 1.7 TH/MM3 (1.0-4.8); MEAN CELL VOLUME 89.2 FL (80.0-100.0); MEAN CORPUSCULAR HEMOGLOBIN 29.2 PG (27.0-34.0); MEAN CORPUSCULAR HGB CONC 32.8 % (32.0-36.0); MONO % 11.5 % (0.0-8.0); MONOCYTE # 0.9 TH/MM3 (0-0.9); NEUT % 62.7 % (16.0-70.0); PLATELET COUNT 207 TH/MM3 (150-450); RED BLOOD COUNT 3.74 MIL/MM3 (4.00-5.30); RED CELL DISTRIBUTION WIDTH 15.3 % (11.6-17.2); WHITE BLOOD COUNT 7.4 TH/MM3 (4.0-11.0)
[2018-02-23] MEDS: METOPROLOL TARTRATE 25 MG TAB PO SCH (06:31)
[2018-02-23 06:59] LABS: BICARBONATE 24.1 MEQ/L (21.0-32.0); CALCIUM 8.2 MG/DL (8.5-10.1); CREATININE 0.57 MG/DL (0.50-1.00)
--- NOTE | 2018-02-23 07:34 | EKG ---
Date Performed: 02/22/2018 Time Performed: 16:38:16 PTAGE: 82 years EKG: Sinus rhythm Possible septal infarct - age undetermined Abnormal ECG PREVIOUS TRACING : 02/21/2018 19.36 DOCTOR: Hemanth Pulido Interpretating Date/Time 02/23/2018 07:30:56
--- NOTE | 2018-02-23 08:41 | PD.CARD.PN ---
Subjective Subjective Remarks no complaints Objective Medications Current Medications Medications (Trade) Dose Ordered Sig/Melissa Route Start Time Stop Time Status Last Admin (NS Flush) 2 ml UNSCH PRN IV FLUSH 02/21/18 14:45 (NS Flush) 2 ml BID IV FLUSH 02/21/18 21:00 02/22/18 21:55 (Tylenol) 500 mg Q4H PRN PO 02/21/18 14:45 (Aspirin Chew) 81 mg DAILY CHEW 02/22/18 09:00 02/22/18 07:25 (Ocuvite) 1 tab DAILY PO 02/22/18 09:00 02/22/18 07:25 (Nitroglycerin 2% Oint) 0.5 inch Q6HR TOPICAL 02/22/18 06:30 (Lopressor) 25 mg BID PO 02/23/18 09:00 UNV (Imdur) 60 mg DAILY@07 PO 02/23/18 09:00 UNV Vital Signs / I&O Vital Signs Date Time Temp Pulse Resp B/P (MAP) Pulse Ox O2 Delivery O2 Flow Rate FiO2 02/23/18 06:00 68 02/23/18 05:00 65 02/23/18 04:27 98.5 63 18 146/56 (86) 96 02/23/18 04:27 63 02/23/18 03:10 61 02/23/18 02:01 67 02/23/18 00:00 98.5 64 18 138/65 (89) 96 02/22/18 21:03 98 21 02/22/18 20:00 98.1 65 20 147/67 (93) 97 02/22/18 19:00 65 02/22/18 18:00 61 02/22/18 17:00 87 02/22/18 16:03 97.8 60 16 132/75 (94) 90 02/22/18 16:00 70 02/22/18 15:00 70 02/22/18 14:00 69 02/22/18 13:00 69 02/22/18 12:43 97.9 69 16 151/71 (97) 96 02/22/18 12:20 98 02/22/18 12:00 63 02/22/18 11:00 70 02/22/18 10:00 68 02/22/18 09:00 61 02/22/18 08:44 97.9 83 18 131/71 (91) 98 I/O 02/22/18 02/22/18 02/22/18 02/23/18 02/23/18 02/23/18 07:00 15:00 23:00 07:00 15:00 23:00 Intake Total 420 ml 720 ml 1530 ml Output Total 700 ml 800 ml 2150 ml Balance -280 ml -80 ml -620 ml Intake Oral 420 ml 720 ml 480 ml IV Total 1050 ml Output Urine Total 700 ml 800 ml 2150 ml # Bowel Movements 2 Physical Exam Alert Chest diminished BS CV S1S2 RRR right groin OK, no edema Laboratory Laboratory Tests Test 02/22/18 13:06 02/23/18 05:17 Activated Partial Thromboplast Time 25.3 SEC White Blood Count 7.4 TH/MM3 Red Blood Count 3.74 MIL/MM3 Hemoglobin 10.9 GM/DL Hematocrit 33.3 % Mean Corpuscular Volume 89.2 FL Mean Corpuscular Hemoglobin 29.2 PG Mean Corpuscular Hemoglobin Concent 32.8 % Red Cell Distribution Width 15.3 % Platelet Count 207 TH/MM3 Mean Platelet Volume 10.0 FL Neutrophils (%) (Auto) 62.7 % Lymphocytes (%) (Auto) 22.2 % Monocytes (%) (Auto) 11.5 % Eosinophils (%) (Auto) 2.8 % Basophils (%) (Auto) 0.8 % Neutrophils # (Auto) 4.7 TH/MM3 Lymphocytes # (Auto) 1.7 TH/MM3 Monocytes # (Auto) 0.9 TH/MM3 Eosinophils # (Auto) 0.2 TH/MM3 Basophils # (Auto) 0.1 TH/MM3 CBC Comment DIFF FINAL Differential Comment Blood Urea Nitrogen 16 MG/DL Creatinine 0.57 MG/DL Random Glucose 89 MG/DL Calcium Level 8.2 MG/DL Sodium Level 143 MEQ/L Potassium Level 3.8 MEQ/L Chloride Level 111 MEQ/L Carbon Dioxide Level 24.1 MEQ/L Anion Gap 8 MEQ/L Estimat Glomerular Filtration Rate 101 ML/MIN Assessment and Plan Problem List: (1) COPD (chronic obstructive pulmonary disease) ICD Codes: J44.9 - Chronic obstructive pulmonary disease, unspecified (2) PAD (peripheral artery disease) ICD Codes: I73.9 - Peripheral vascular disease, unspecified (3) Left main coronary artery disease ICD Codes: I25.10 - Atherosclerotic heart disease of [place] coronary artery without angina pectoris (4) CAD (coronary artery disease) ICD Codes: I25.10 - Atherosclerotic heart disease of [place] coronary artery without angina pectoris (5) NSTEMI (non-ST elevated myocardial infarction) ICD Codes: I21.4 - Non-ST elevation (NSTEMI) myocardial infarction Assessment and Plan Meds optimized. Refuses CABG. Risk of discussed. OK with me to [place] home. Miguel Ramirez MD Feb 23, 2018 08:41
[2018-02-23] MEDS: SODIUM CHLORIDE 0.9% FLUSH 10 ML FLUSH IV FLUSH SCH (09:00)
[2018-02-23] MEDS: MULTIVITAMIN-OPHTHALMIC 1 TAB PO SCH (09:00)
[2018-02-23] MEDS ORDERED: ISOSORBIDE MONONITRATE 60 MG CR TAB (IMDUR) PO SCH (09:00)
[2018-02-23] MEDS: ASPIRIN 81 MG CHEW TAB CHEW SCH (09:06)
[2018-02-23] MEDS ORDERED: PILL SPLITTER OTHER PRN (09:15)
[2018-02-23] MEDS ORDERED: METOPROLOL TARTRATE 25 MG TAB PO ONE (09:30)
[2018-02-23] MEDS ORDERED: METO25TA3 PO (10:21)
[2018-02-23] MEDS ORDERED: ISOS60TA PO (10:21)
--- NOTE | 2018-02-23 10:21 | HHI.DCPOC ---
Discharge Care Plan Diagnosis: (1) CAD (coronary artery disease) (2) NSTEMI (non-ST elevated myocardial infarction) (3) PAD (peripheral artery disease) (4) Left main coronary artery disease Goals to Promote Your Health * To prevent worsening of your condition and complications * To maintain your health at the optimal level Directions to Meet Your Goals Take your medications as prescribed Follow your dietary instruction Follow activity as directed Keep your appointments as scheduled Take your immunizations and boosters as scheduled If your symptoms worsen call your PCP, if no PCP go to Urgent Care Center or Emergency Room Smoking is Dangerous to Your Health. Avoid second hand smoke Call the 24-hour hour crisis hotline for domestic abuse at Rosa Varghese MD Feb 23, 2018 10:21
--- NOTE | 2018-02-23 10:24 | HHI.DS ---
Discharge Summary Admission Date Feb 21, 2018 at 14:42 Discharge Date: Feb 23, 2018 Admitting Diagnosis Elevated troponin, palpitations (1) Elevated troponin ICD Code: R74.8 - Abnormal levels of other serum enzymes Status: Acute (2) NSTEMI (non-ST elevated myocardial infarction) ICD Code: I21.4 - Non-ST elevation (NSTEMI) myocardial infarction (3) CAD (coronary artery disease) ICD Code: I25.10 - Atherosclerotic heart disease of [place] coronary artery without angina pectoris Procedures Heart catheterization Brief History - From Admission HPI from the admitting physician This is a pleasant 82-year-old female patient with a known medical history of hyperlipidemia, hypertension and history of vasovagal syncope who presented to the ED with complaints of palpitations. Supposedly around 1130 this morning she felt lightheaded, went to lay down and also complained of palpitations for approximately 15 minutes. She does admit to associated shortness of breath and felt like she was gasping for air. She called her daughter as well as 911. Patient does admit to vomiting 1 at home. She feels like something was pounding in her chest this morning, denies any actual chest pain. Denies any associated lightheadedness or dizziness. Patient states upon arrival to the ED all of her symptoms subsided. She denies any recent illness including fever, chills, cough, shortness of breath, headache, abdominal pain, nausea, diarrhea or dysuria. Does admit to a history of vasovagal syncope, states that she has been seeing a neurologist, Dr. Mott, as well as Dr. Schultz, cardiology for management of this disease. She last saw her administrative dietitian one year ago. She does admit to history of palpitations in the past. Does state she underwent a cardiac catheterization back in 2006 and since then has not underwent a cardiac stress test. She states roughly 2 years ago she was hospitalized at [facility], and workup was done for her syncope including MRI, echocardiogram. 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 It should also be noted that she reports some carotid blockage but unaware of extent. CBC/BMP: 02/23/18 0517 02/23/18 0517 Significant Findings Laboratory Tests Test 02/21/18 13:25 02/21/18 14:14 02/21/18 16:45 02/21/18 18:07 Neutrophils (%) (Auto) 71.5 % (16.0-70.0) Monocytes (%) (Auto) 9.1 % (0.0-8.0) Blood Urea Nitrogen 19 MG/DL (7-18) Estimat Glomerular Filtration Rate 72 ML/MIN (>89) Troponin I 0.09 NG/ML (0.02-0.05) 0.37 NG/ML (0.02-0.05) Activated Partial Thromboplast Time 23.5 SEC (24.3-30.1) 22.9 SEC (24.3-30.1) Test 02/21/18 19:40 02/22/18 01:26 02/22/18 08:34 02/22/18 13:06 Troponin I 0.27 NG/ML (0.02-0.05) Activated Partial Thromboplast Time 34.4 SEC (24.3-30.1) Blood Urea Nitrogen 20 MG/DL (7-18) Estimat Glomerular Filtration Rate 67 ML/MIN (>89) Cholesterol Level 241 MG/DL (120-200) LDL Cholesterol 161 MG/DL (0-99) HDL Cholesterol 63.4 MG/DL (40.0-60.0) Test 02/23/18 05:17 Red Blood Count 3.74 MIL/MM3 (4.00-5.30) Hemoglobin 10.9 GM/DL (11.6-15.3) Hematocrit 33.3 % (35.0-46.0) Monocytes (%) (Auto) 11.5 % (0.0-8.0) Calcium Level 8.2 MG/DL (8.5-10.1) Chloride Level 111 MEQ/L (98-107) Imaging Last Impressions Chest X-Ray 02/21/18 0000 Signed Impressions: CONCLUSION: COPD changes. No acute abnormality. PE at Discharge GENERAL: This is a well-nourished, well-developed patient, in no apparent distress. CARDIOVASCULAR: Normal rate and regular rhythm without murmurs, gallops, or rubs. RESPIRATORY: Good respiratory efforts. Breath sounds equal and clear to auscultation bilaterally. GASTROINTESTINAL: Abdomen soft, non-tender, non-distended. Normal active bowel sounds MUSCULOSKELETAL: Extremities without cyanosis, or edema. NEURO: Alert & Oriented x4 to person, place, time, situation. Moves all ext x4 PSYCH: Appropriate mood and affect. Pt update on day of discharge No new changes. No cardiovascular complaints. Denied surgery. Wants to go home. Hospital Course 82-year-old female patient with a known medical history of hyperlipidemia, hypertension and history of vasovagal syncope who presented to the ED with complaints of palpitations. Patient found to have NSTEMI. she underwent heart catheterization which revealed if he cannot multivessel disease. Cardiology recommended bypass surgery. CT surgery was consulted. The patient refused surgical intervention. They opted for medical management only. P -Continue aspirin, metoprolol, Imdur. Pt Condition on Discharge: Good Discharge Disposition: Discharge Home Discharge Time: <= 30 minutes Discharge Instructions DIET: Follow Instructions for: Heart Healthy Diet Activities you can perform: Regular-No Restrictions Follow up Referrals: Cardiology PCP Follow-up New Medications: Isosorbide Mononitrate ER (Isosorbide Mononitrate ER) 60 Mg Tab 60 MG PO DAILY@07, #30 TAB Metoprolol Tartrate (Metoprolol Tartrate) 25 Mg Tab 25 MG PO BID, #60 TAB Continued Medications: Aspirin (Aspirin) 81 Mg Chew 81 MG CHEW DAILY, TAB 0 Refills Multiple Vitamins W/ Minerals (Preservision Areds) 1 Tab 1 TAB PO DAILY for Nutritional Supplement, TAB 0 Refills Rosa Varghese MD Feb 23, 2018 10:24
[2018-02-23] MEDS ORDERED: METOPROLOL TARTRATE 25 MG TAB PO SCH (21:00)
== END 2018-02-23 11:19 | disposition home or self-care (01) ==
LOC: PHED 12:28 → PHEDA 14:42 → PH3A 15:43 → HCIS 22:18
PROVIDERS: ADMIT Family Medicine; ATTEND Family Medicine
DX: I21.4 Non-ST elevation (NSTEMI) myocardial infarction (principal); I25.10 Atherosclerotic heart disease of native coronary artery without angina pectoris; I73.9 Peripheral vascular disease, unspecified; R00.2 Palpitations; R42 Dizziness and giddiness; F41.9 Anxiety disorder, unspecified; I10 Essential (primary) hypertension; F17.210 Nicotine dependence, cigarettes, uncomplicated; R06.02 Shortness of breath; R74.8 Abnormal levels of other serum enzymes; E78.5 Hyperlipidemia, unspecified
CPT/HCPCS: 71045; 80048; 80053; 80061; 82550; 83735; 84443; 84484; 85025; 85027; 85610; 85730; 93005; 93306; 93458; 93567; 96361; 96365; 99152; 99153; 99285; C1760; C1769; C1893; G0269; G0378; J1644; J2250; J7030; Q9967